=== PATIENT | male | born 1955 | race Two or more races ===

== ENCOUNTER 2024-06-04 14:44 | Outpatient (CLI) | payer OTHER | END 2024-06-04 14:45 | disposition home or self-care (01) | LOC: SONOGRAMA 14:44 | PROVIDERS: ATTEND Pathology Anatomic Pathology & Clinical Pathology | DX: R22.1 Localized swelling, mass and lump, neck (principal); C76.8 Malignant neoplasm of other specified ill-defined sites; C77.0 Secondary and unspecified malignant neoplasm of lymph nodes of head, face and neck ==